=== PATIENT | male | born 1995 | race Caucasian/White ===

== ENCOUNTER 2024-06-29 10:17 | Emergency (ER) | payer BC, SELFPAY ==
[2024-06-29 10:29] VITALS: BP 124/92; PULSE 96; RESP 18; TEMP 36.9; O2SAT 100
--- NOTE | 2024-06-29 10:38 | ED_ITS ---
HPI - Dental/Oral General Chief complaint: Dental/Oral Stated complaint: Tooth Pain Time Seen by Provider: 06/29/24 10:39 Source: patient, RN notes reviewed and old records reviewed Mode of arrival: ambulatory Limitations: no limitations History of Present Illness HPI Narrative: 28 year old male who presents to [facility] care with complaints of pain to the left #17 tooth area where wisdom tooth is impacted with redness and swelling with the left side of his face swollen. Patient has no difficulty with his breathing or with swallowing. Patient has not taken any thing for his pain or used ice to his jaw region. Patient has no trismus or any Ryan angina noted MD Complaint: tooth pain Location: Tooth # (17) Onset (ago): day(s) (started last night) Duration: constant Severity scale (1-10): 7 Treatment prior to arrival: none Related Data Allergies Allergy/AdvReac Type Severity Reaction Status Date / Time No Known Allergies Allergy Verified 06/29/24 10:43 Review of Systems Review of Systems: CONSTITUTIONAL: Denies fever, chills, or sweats. ENT: Denies rhinorrhea, congestion, sore throat, or otalgia. Reports dental pain#17 tooth impacted wisdom tooth with swelling of left side of jaw CARDIOVASCULAR: Denies chest pain, palpitations, or edema. RESPIRATORY: Denies cough or dyspnea. SKIN: Denies rash or itching. MUSCULOSKELETAL: Denies myalgia. NEUROLOGIC: Denies headache All systems reviewed & are unremarkable except as noted in HPI and below PMFSH Surgical History Surgical History (Updated 06/29/24 @ 10:50 by Connie Mitchell NP) S/P wisdom tooth extraction right lower wisdom tooth extraction Social History Social History (Updated 06/29/24 @ 10:49 by Connie Mitchell NP) Smoking status: Current every day smoker Tobacco type: e-cigarettes/vaping Additional smoking assessment comments: former cigarette use Alcohol intake: current Alcohol use details: social Comments At time of signature, agree with nursing past medical, surgical, social and family history. There is no relevant family history pertinent to the presenting complaint Exam Narrative: GENERAL: Well-appearing, well-nourished, and in some acute distress related to pain. HEAD: Normocephalic, atraumatic. EYES: PERRLA and EOMI. ENT: Nares clear, no rhinorrhea or epistaxis. Mucous membranes moist. Impacted left wisdom tooth with gum swollen and redness, left side of face is swollen, no trismus or any Ryan angina NECK: Supple. no lymphadenopathy CHEST: Clear to auscultation. No respiratory distress. SAO2 100% on room air HEART: Regular rate and rhythm. No murmur heard. Normal peripheral pulses. SKIN: Warm, dry, no rash. NEURO: No focal deficits. Alert and oriented x3. Course Course Emergency Course: Patient is aware of diagnosis, understands and agrees to treatment plan. Anticipatory guidance given. Patient agrees to follow-up as directed and is aware of reasons to seek care at the emergency department. Portions of this record may have been created with voice recognition software Level of Care: Express Care Visit Vital Signs Vital signs: Vital Signs Temperature 36.9 C 06/29/24 10:29 Pulse Rate 96 06/29/24 10:29 Respiratory Rate 18 06/29/24 10:29 Blood Pressure 124/92 H 06/29/24 10:29 Pulse Oximetry 100 06/29/24 10:29 Oxygen Delivery Room Air 06/29/24 10:29 Temperature 36.9 C 06/29/24 10:29 Pulse Rate 96 06/29/24 10:29 Respiratory Rate 18 06/29/24 10:29 Blood Pressure 124/92 H 06/29/24 10:29 Pulse Oximetry 100 06/29/24 10:29 Oxygen Delivery Room Air 06/29/24 10:29 Reviewed MDM - Dental/Oral MDM Narrative Medical decision making narrative: Patients pain and complaint coupled with physical findings are consistent with dentalgia. There are no focal signs of space occupying lesions that are compromising to the airway; no dysphagia, odynophagia, dysphonia, or dyspnea. No uvular deviation or soft palate edema. Patient is non-toxic appearing. The floor of the mouth is soft with no signs of Ryan's Angina; no induration below mandible, no neck pain.? Patient is without trismus or drooling and able to swallow secretions.? Patient is felt appropriate for discharge home with dental follow up. Differential Diagnosis Differential diagnosis: Likely gingival abscess, toothache, dental abscess and other (impacted wisdom tooth) Medical Records Attestation: I reviewed the patient's medical records. Critical Care Time Critical Care Time Critical Care Time: No Discharge Plan Discharge Clinical Impression: Dentalgia, Left facial swelling Patient Disposition: Home, Self-Care Condition: Stable Instructions: Antibiotic Form, Toothache (ED) Additional Instructions: Avoid temperature extremes May apply heat or ice to the face Gentle brushing and flossing Antibiotic as directed Tylenol for lesser pain Use ibuprofen regularly Follow-up with the dentist as soon as possible--see the list provided If your symptoms persist, change or worsen significantly before you can contact your personal physician then please, without delay, go to the emergency department for further evaluation. Follow-up with PCP in 7-10 days or sooner if needed Follow up with PCP soon in regards to your blood pressure which is elevated abo ve threshold for referral. Blood pressure above 120/80 may indicate pre- hypertension. 124/92 diastolic elevated Prescriptions: New penicillin V potassium 500 mg tablet 500 mg PO Q12H 10 Days Qty: 20 0RF ibuprofen 600 mg tablet 600 mg PO QID PRN (Reason: pain) Qty: 30 0RF Follow-up/Referrals: UNKNOWN,DOCTOR [Primary Care Provider] - Stand Alone Forms: Work/School Release IP Time of Disposition: 10:53 Quality [place] Coma Scale Eyes: Open Verbal: Oriented and Alert Motor: Follows Commands [place] Coma Total Score: 15
== END 2024-06-29 11:01 | disposition home or self-care (01) ==
PROVIDERS: Emergency Provider Registered Nurse
DX: K08.89 Other specified disorders of teeth and supporting structures (principal); R22.0 Localized swelling, mass and lump, head; F17.290 Nicotine dependence, other tobacco product, uncomplicated
CPT/HCPCS: 99213; G0463